=== PATIENT | female | born 1955 | race Caucasian/White ===

== ENCOUNTER 2018-12-02 05:07 | Inpatient (IN) ==
--- NOTE | 2018-10-28 14:34 | PAT Medication Instructions ---
Medication Instructions Date of Service October 28, 2018 Home Medications Beet Powder 1 dose PO QPM Dejesus Juice 1 dose PO QPM acetaminophen [Tylenol Arthritis Pain] 650 mg PO Q12H PRN aspirin 81 mg PO QPM atenolol 25 mg PO HS calcium carbonate [Calcium 500] 500 mg PO QPM cholecalciferol (vitamin D3) [Vitamin D3] 5,000 unit PO QPM cranberry 500 mg PO QPM diclofenac sodium 75 mg PO BID duloxetine [Cymbalta] 60 mg PO QAM hydroxychloroquine 200 mg PO BID magnesium 500 mg PO QPM melatonin 10 mg PO HS pantoprazole [Protonix] 40 mg PO QAM pravastatin [Pravachol] 40 mg PO QPM topiramate [Topamax] 25 mg PO HS ASK your surgeon for instructions diclofenac sodium 75 mg PO BID ASK your prescriber and surgeon hydroxychloroquine 200 mg PO BID STOP taking 2 weeks before surgery (or as soon as possible if surgery is within 2 weeks) Beet Powder 1 dose PO QPM Dejesus Juice 1 dose PO QPM cranberry 500 mg PO QPM Take morning of surgery With a small sip of water, OTHERWISE NOTHING TO EAT OR DRINK AFTER MIDNIGHT: acetaminophen [Tylenol Arthritis Pain] 650 mg PO Q12H PRN (okay to take up to 4 hours prior to surgery if needed) duloxetine [Cymbalta] 60 mg PO QAM pantoprazole [Protonix] 40 mg PO QAM Take evening before surgery acetaminophen [Tylenol Arthritis Pain] 650 mg PO Q12H PRN (if needed) aspirin 81 mg PO QPM atenolol 25 mg PO HS calcium carbonate [Calcium 500] 500 mg PO QPM cholecalciferol (vitamin D3) [Vitamin D3] 5,000 unit PO QPM magnesium 500 mg PO QPM melatonin 10 mg PO HS pravastatin [Pravachol] 40 mg PO QPM topiramate [Topamax] 25 mg PO HS Other Notes If you have any questions please call us at [phone] or [phone] or [phone] or [phone]
--- NOTE | 2018-10-28 15:19 | Anesthesiology Consultation ---
Date of Service October 28, 2018 History Surgery Operation Date: 12/02/18 07:00 Proposed Procedures p Right Total Knee Arthroplasty - Leland Garcia, Height/Weight Height: 5 ft 8 in Weight: 120.202 kg Allergies Allergy/AdvReac Type Severity Reaction Status Date / Time Penicillins Allergy Unknown HIVES Verified 10/27/18 08:26 sulfamethoxazole Allergy Rash Verified 10/27/18 08:26 [From Bactrim] trimethoprim [From Bactrim] Allergy Rash Verified 10/27/18 08:26 Medications Home Medications Medication Instructions Recorded Confirmed Last Taken Beet Powder 1 dose PO QPM 10/27/18 10/27/18 Unknown Dejesus Juice 1 dose PO QPM 10/27/18 10/27/18 Unknown acetaminophen [Tylenol Arthritis 650 mg PO Q12H PRN 10/27/18 10/27/18 Unknown Pain] aspirin 81 mg PO QPM 10/27/18 10/27/18 Unknown atenolol 25 mg PO HS 10/27/18 10/27/18 Unknown calcium carbonate [Calcium 500] 500 mg PO QPM 10/27/18 10/27/18 Unknown cholecalciferol (vitamin D3) 5,000 unit PO QPM 10/27/18 10/27/18 Unknown [Vitamin D3] cranberry 500 mg PO QPM 10/27/18 10/27/18 Unknown diclofenac sodium 75 mg PO BID 10/27/18 10/27/18 Unknown duloxetine [Cymbalta] 60 mg PO QAM 10/27/18 10/27/18 Unknown hydroxychloroquine 200 mg PO BID 10/27/18 10/27/18 Unknown magnesium 500 mg PO QPM 10/27/18 10/27/18 Unknown melatonin 10 mg PO HS 10/27/18 10/27/18 Unknown pantoprazole [Protonix] 40 mg PO QAM 10/27/18 10/27/18 Unknown pravastatin [Pravachol] 40 mg PO QPM 10/27/18 10/27/18 Unknown topiramate [Topamax] 25 mg PO HS 10/27/18 10/27/18 Unknown Past Medical History Medical History Atrial fibrillation ON ASA/BETA ERLINDA GERD (gastroesophageal reflux disease) HTN (hypertension) Lupus FOLLOWS WITH DRKayla STEVENS)/RHEUMATOLOGY Migraine Osteoarthritis Past Surgical History Surgical History History of arthroscopy of left knee x3 History of section x2 History of colonoscopy History of esophagogastroduodenoscopy (EGD) History of surgery LEFT SHOULDER JOINT SURGICAL MANIPULATION History of tonsillectomy History of tooth extraction History of total left knee replacement Hx of repair of left rotator cuff Status post surgical manipulation of knee joint LEFT Social History Smoking Status: Never smoker Do You Dip or Chew Tobacco: No Hx Alcohol Use: Yes Alcohol type: wine alcohol intake frequency: a few times a month Hx Substance Use: No substance use type: does not use
--- NOTE | 2018-11-01 11:37 | Anesthesiology Consultation ---
Date of Service November 01, 2018 Assessment & Plan (1) Encounter for pre-operative examination: - Cardio: 04/21/18: "Given the patient's clinical stability, I have not ordered new non-invasive tests at this time." 1 year followup recommended. - OK to continue ASA perioperatively per surgeon. Chart Review Chart Review: Acceptable Risk for Surgery and Patient seen in Pre Admission Testing Teaching & Discussion Pre-Anesthesia Teaching/Discussion Notes: Instructed NPO after midnight before surgery,except medications with 15 cc of water. Medication instructions provided according to the PAT guidelines. History Surgery Operation Date: 12/02/18 07:00 Proposed Procedures p Right Total Knee Arthroplasty - Leland Garcia, Height/Weight Height: 5 ft 8 in Weight: 122.8 kg Allergies Allergy/AdvReac Type Severity Reaction Status Date / Time Penicillins Allergy Unknown HIVES Verified 10/27/18 08:26 sulfamethoxazole Allergy Rash Verified 10/27/18 08:26 [From Bactrim] trimethoprim [From Bactrim] Allergy Rash Verified 10/27/18 08:26 Medications Home Medications Medication Instructions Recorded Confirmed Last Taken Beet Powder 1 dose PO QPM 10/27/18 10/27/18 Unknown Dejesus Juice 1 dose PO QPM 10/27/18 10/27/18 Unknown acetaminophen [Tylenol Arthritis 650 mg PO Q12H PRN 10/27/18 10/27/18 Unknown Pain] aspirin 81 mg PO QPM 10/27/18 10/27/18 Unknown atenolol 25 mg PO HS 10/27/18 10/27/18 Unknown calcium carbonate [Calcium 500] 500 mg PO QPM 10/27/18 10/27/18 Unknown cholecalciferol (vitamin D3) 5,000 unit PO QPM 10/27/18 10/27/18 Unknown [Vitamin D3] cranberry 500 mg PO QPM 10/27/18 10/27/18 Unknown diclofenac sodium 75 mg PO BID 10/27/18 10/27/18 Unknown duloxetine [Cymbalta] 60 mg PO QAM 10/27/18 10/27/18 Unknown hydroxychloroquine 200 mg PO BID 10/27/18 10/27/18 Unknown magnesium 500 mg PO QPM 10/27/18 10/27/18 Unknown melatonin 10 mg PO HS 10/27/18 10/27/18 Unknown pantoprazole [Protonix] 40 mg PO QAM 10/27/18 10/27/18 Unknown pravastatin [Pravachol] 40 mg PO QPM 10/27/18 10/27/18 Unknown topiramate [Topamax] 25 mg PO HS 10/27/18 10/27/18 Unknown Past Medical History Medical History Anemia BASELINE HGB LOW 12 RANGE PER CHART REVIEW Atrial fibrillation ON ASA/BETA ERLINDA GERD (gastroesophageal reflux disease) CONTROLLED HTN (hypertension) Lupus FOLLOWS WITH RHEUMATOLOGY; "STABLE" Migraine Osteoarthritis Exercise / Class Metabolic Activity III < 4 Walking/Shop/Light housework (USES CANE PRN) Past Family History Family History Brother Family hx of colon cancer Past Surgical History Surgical History History of arthroscopy of left knee x3 History of section x2 History of colonoscopy History of esophagogastroduodenoscopy (EGD) HX ESOPHAGEAL STRICTURES S/P DILATION History of surgery B/L SHOULDER MANIPULATION + INJECTION: 02/28/16: LMA #4 AT [facility] History of tonsillectomy History of tooth extraction History of total left knee replacement Hx of repair of left rotator cuff Status post surgical manipulation of knee joint LEFT Past Anesthesia History No Hx of Anesthesia Complications and No Family Hx of Anesthesia Complications History of PONV No Hx of PONV and Hx of Motion Sickness Social History Smoking Status: Never smoker Do You Dip or Chew Tobacco: No Hx Alcohol Use: Yes Alcohol type: wine alcohol intake frequency: a few times a month Hx Substance Use: No substance use type: does not use Review of Systems Patient denies chest pain, shortness of breath, cough, wheezing, palpitations. Physical Exam Vital Signs VITALS BP 137/82 P 68 TEMP 97.7 SP02 97%RA RESP 18 PHYSICAL Full neck and c-spine range of motion. Full TMJ range of motion. TMD 2.5 finger breaths Mallampati Score 2 Dentition: lower left side permanent bridge Lungs: clear throughout to auscultation Cardiac: regular rate and rhythm, no murmurs noted Spine: normal Carotid arteries: negative bruit Extremities: no edema Thick neck Testing Laboratory Results 11/01/18 11:51 11/01/18 11:51 11/01/18 11:51 PT 9.8 INR 1.0 APTT 25.3 11/01/18 T&S A+Ab- Electrocardiogram Date: 04/21/18 SR at 76bpm. Chest X-Ray Date: 11/01/18 Findings: + NAD Linear subsegmental bibasilar atelectasis/scarring. Echocardiogram Date: 04/08/18 EF 60-65%. No significant valvular disease. Stress Test Date: 11/13/14 Type: exercise (+ nuclear) Myocardial perfusion imaging done at rest and after treadmill stress is "normal." No evidence of myocardial infarction or ischemia. EF 63%. Wall motion is "normal." 83% MPHR. 7 METS. Other Testing CTA heart: 12/05/14: No significant LM/LCX disease. small/moderate non-obstruc tive LAD plaque. Very small non-obstructive RCA plaque.
--- NOTE | 2018-11-01 12:15 | XRay Report ---
XR chest Pre-admission PA/Lat HISTORY: 63 years-old Female pat preoperative exam. No acute chest complaints COMPARISON: None available TECHNIQUE: PA and lateral views of the chest FINDINGS: Cardiomediastinal silhouettes are within normal limits. Linear subsegmental bibasilar atelectasis/sca rring. No pneumothorax, pleural effusion, focal airspace consolidation or overt pulmonary edema. Dege nerative changes of the shoulders and spine. IMPRESSION: No acute process. The above report was generated using voice recognition software. It may contain grammatical, syntax o r spelling errors. Electronically signed by: Rodney Haywood M.D. 11/01/2018 12:14 PM
[2018-11-01 12:28] LABS: Basophils # (auto) 0.06 K/uL (0-0.2); Eosinophils # (auto) 0.16 K/uL (0-0.5); Eosinophils % (auto) 2.7 %; Hematocrit (blood only) 36.5 % (37-47); Hemoglobin 11.4 g/dL (12.0-16.0); Immature Granulocytes # (auto) 0.02 K/uL (0.00-0.02); Immature Granulocytes % (auto) 0.3 %; Lymphocytes # (auto) 1.52 K/uL (1.2-3.4); Lymphocytes % (auto) 25.4 %; Mean Corpuscular Hgb Conc 31.2 g/dL (32-36); Mean Corpuscular Volume 84.9 fL (80-100); Mean Platelet Volume 10.7 fL (7.4-10.4); Monocytes # (auto) 0.55 K/uL (0.11-0.59); Monocytes % (auto) 9.2 %; Neutrophils # (auto) 3.68 K/uL (1.4-6.5); Neutrophils % (auto) 61.4 %; Platelet Count 313 K/uL (130-400); RDW Coefficient of Variation 15.1 % (11.5-14.5); RDW Standard Deviation 46.7 fL (36.4-46.3); White Blood Count 5.99 K/uL (4.8-10.8)
[2018-11-01 12:36] LABS: BUN Creatinine Ratio 25.2 (10-20); Creatinine Clr Calc Pharmacy 145.7 ml/min; Est GFR (African American) 116.6; Est GFR (Non-African American) 100.6; Potassium 4.3 mmol/L (3.5-5.1)
[2018-11-01 12:43] LABS: Partial Thromboplastin Ratio 0.9; Partial Thromboplastin Time 25.3 Seconds (21.0-31.0); Prothrombin Time 9.8 Seconds (9.0-12.0)
--- NOTE | 2018-12-01 06:39 | History & Physical Report ---
Date of Service December 01, 2018 Assessment & Plan (1) Osteoarthritis of right knee: We will proceed with a right total knee arthroplasty. Postoperatively she will be started on aspirin for DVT prophylaxis and kept overnight in the hospital for postoperative medical management. She plans to use outpatient physical therapy in [place] upon discharge. Present on Admission?: Yes History of Present Illness Chief Complaint: Primary osteoarthritis of the right knee Primary Care Provider: Rebeccajosirylanadriel Mustapha Sanchez is a pleasant 63-year-old female who is been dealing with chronic increasing right knee pain. X-rays and clinical examination have been diagnostic for primary osteoarthritis of the right knee. After failing conservative treatment, she has elected to proceed with a right total knee arthroplasty. She does have a history of a left knee replacement done 12 years ago at another institution. Allergies Allergy/AdvReac Type Severity Reaction Status Date / Time Penicillins Allergy Unknown HIVES Verified 10/27/18 08:26 sulfamethoxazole Allergy Rash Verified 10/27/18 08:26 [From Bactrim] trimethoprim [From Bactrim] Allergy Rash Verified 10/27/18 08:26 Home Medications Home Medications Medication Instructions Recorded Confirmed Type Beet Powder 1 dose PO QPM 10/27/18 10/27/18 History Dejesus Juice 1 dose PO QPM 10/27/18 10/27/18 History acetaminophen [Tylenol Arthritis 650 mg PO Q12H PRN 10/27/18 10/27/18 History Pain] aspirin 81 mg PO QPM 10/27/18 10/27/18 History atenolol 25 mg PO HS 10/27/18 10/27/18 History calcium carbonate [Calcium 500] 500 mg PO QPM 10/27/18 10/27/18 History cholecalciferol (vitamin D3) 5,000 unit PO QPM 10/27/18 10/27/18 History [Vitamin D3] cranberry 500 mg PO QPM 10/27/18 10/27/18 History diclofenac sodium 75 mg PO BID 10/27/18 10/27/18 History duloxetine [Cymbalta] 60 mg PO QAM 10/27/18 10/27/18 History hydroxychloroquine 200 mg PO BID 10/27/18 10/27/18 History magnesium 500 mg PO QPM 10/27/18 10/27/18 History melatonin 10 mg PO HS 10/27/18 10/27/18 History pantoprazole [Protonix] 40 mg PO QAM 10/27/18 10/27/18 History pravastatin [Pravachol] 40 mg PO QPM 10/27/18 10/27/18 History topiramate [Topamax] 25 mg PO HS 10/27/18 10/27/18 History Past Med/Surg History Medical History Anemia BASELINE HGB LOW 12 RANGE PER CHART REVIEW Atrial fibrillation ON ASA/BETA ERLINDA GERD (gastroesophageal reflux disease) CONTROLLED HTN (hypertension) Lupus FOLLOWS WITH RHEUMATOLOGY; "STABLE" Migraine Osteoarthritis Surgical History History of arthroscopy of left knee x3 History of section x2 History of colonoscopy History of esophagogastroduodenoscopy (EGD) HX ESOPHAGEAL STRICTURES S/P DILATION History of surgery B/L SHOULDER MANIPULATION + INJECTION: 02/28/16: LMA #4 AT [facility] History of tonsillectomy History of tooth extraction History of total left knee replacement Hx of repair of left rotator cuff Status post surgical manipulation of knee joint LEFT Family History Brother Family hx of colon cancer Social History Preferred Language: Moldovan Communication Ability: Effective Aerographer Required: No Beliefs That Will Affect Care: None Current Living Situation: Spouse Other Information That Helps Us Care for You: No Feels Safe at Home: Yes Safety Concerns: Feels Safe At This Time Smoking Status: Never smoker Do You Dip or Chew Tobacco: No Second Hand Exposure: No Hx Alcohol Use: Yes Alcohol type: wine Hx Substance Use: No Review of Systems All systems reviewed & are unremarkable except as noted in HPI & below Physical Exam Constitutional: WD/WN, vitals as above Eyes: PERRL, conjunctivae normal, anicteric sclerae ENMT: external ear and nose normal, oropharynx normal Neck: trachea midline, no thyromegaly Respiratory: normal respiratory effort Cardiovascular: RRR, no murmur, no edema Gastrointestinal (Abdomen): normal bowel sounds, soft, nontender, no hepatosplenomegaly Musculoskeletal: On physical examination of the right knee there is a trace effusion. There is near full range of motion and no evidence of instability. There is significant tenderness palpation along the medial and lateral joint lines and over the distal femoral condyles. Psychiatric: A+Ox3, euthymic affect Results & Data Diagnostic Findings Radiographs of the right knee demonstrate advanced osteoarthritis with joint space narrowing osteophyte formation and [id number] articulation.
[2018-12-02] MEDS ORDERED: ROPIVACAINE 0.5% 5 MG/ML 30 ML VIAL ONE (05:58)
[2018-12-02] MEDS ORDERED: BUPIVACAINE 0.5 % 5 MG/1 ML PF 10ML VIAL ONE (05:58)
[2018-12-02] MEDS ORDERED: GABAPENTIN 600 MG DOSE PO SCH (06:00)
[2018-12-02] MEDS ORDERED: ACETAMINOPHEN 500 MG TAB PO SCH (06:00)
[2018-12-02] MEDS ORDERED: LR 500ML BOLUS IV SCH (06:00)
[2018-12-02] MEDS ORDERED: TRANEXAMIC ACID 1,000 MG **IV Pre-op IV SCH (06:00)
[2018-12-02] MEDS ORDERED: ROPIVACAINE 0.5% HCL/PF 150 MG, BUPIVACAINE 0.5% MPF 30 ML, EPINEPHrine 30MG/30ML (OR U... INSTIL SCH (06:00)
[2018-12-02] MEDS ORDERED: FAMOTIDINE 20 MG TAB PO SCH (06:00)
[2018-12-02] MEDS ORDERED: LR 500ML BOLUS, THEN 15ML/HR IV SCH (06:00)
[2018-12-02] MEDS ORDERED: LR 60ML/HR IV SCH (06:00)
[2018-12-02] MEDS ORDERED: TRANEXAMIC ACID 1,000 MG **IV Intra-op IV SCH (06:30)
[2018-12-02] MEDS ORDERED: ORTHO JOINT ANESTHETIC ONE (06:32)
[2018-12-02] MEDS ORDERED: CEFAZOLIN 2,000 MG/15 ML IV PUSH IV ONE (06:37)
[2018-12-02] MEDS ORDERED: MIDAZOLAM HCL 1 MG/ML 2ML VIAL ONE ×3 (06:42→08:14)
[2018-12-02] MEDS ORDERED: fentaNYL citrate 100 MCG/2 ML VIAL ONE (06:42)
--- NOTE | 2018-12-02 06:52 | History & Physical Bridge Note ---
Date of Service December 02, 2018 History & Physical Bridge Note I have examined the patient, reviewed the History & Physical and in the interval since the performance of the History & Physical I have noted the following changes of clinical significance: no changes noted
[2018-12-02] MEDS ORDERED: KETOROLAC 30 MG/ML VIAL IV PRN (07:24)
[2018-12-02] MEDS ORDERED: ONDANSETRON INJ 2 MG/ML 2 ML VIAL IV PRN ×2 (07:24→09:51)
[2018-12-02] MEDS ORDERED: ATROPINE SULFATE 0.1 MG/ML 10ML SYR IV PRN (07:24)
[2018-12-02] MEDS ORDERED: ePHEDrine sulfate 50 MG/ML AMP IV PRN (07:24)
[2018-12-02] MEDS ORDERED: HYDROmorphone INJ 1 MG/ML SYRINGE IV PRN (07:24)
[2018-12-02] MEDS ORDERED: DEXAMETHASONE SOD INJ 4 MG/ML VIAL ONE (08:33)
[2018-12-02] MEDS ORDERED: ONDANSETRON INJ 2 MG/ML 2 ML VIAL ONE (08:33)
[2018-12-02] MEDS ORDERED: LIDOCAINE HCL 2% 2 ML VIAL/AMP(20MG/ML) INFIL ONE (08:33)
[2018-12-02] MEDS ORDERED: PROPOFOL IV EMULSION 10 MG/ML 20 ML VIAL IV ONE (08:33)
--- NOTE | 2018-12-02 08:38 | Operative Report ---
Post Operative Report Pre & Post Diagnosis Operation Date: 12/02/18 07:00 Pre-Op Diagnosis: Right Knee Degenerative Joint Disease Post-Op Diagnosis: Right Knee Degenerative Joint Disease Procedure Operation Date: 12/02/18 07:00 Actual Procedures p Right Total Knee Arthroplasty(Right) - Leland Garcia DO Surgeon Leland Garcia DO Tool Grinding Technician Leland Levy PAC Estimated Blood Loss 20 Findings Consistent with Post-Op Diagnosis Specimens Right femoral and tibial bone Complications none Disposition Disposition: Recovery Room Indications aLura is a pleasant 63-year-old female who presented my office with complaints of chronic increasing right knee pain. X-rays and clinical examination were diagnostic for primary osteoarthritis of the right knee. After failing conservative treatment, she elected proceed with a right total knee arthroplasty. Description of Procedure Implants used: I used a Biomet Vanguard total knee arthroplasty system with a size 72.5 femur, 71 tibia, 31 patella, and a size 10 PS polyethylene bearing. All components were cemented in place with Palacos G cement. The patient arrived [facility] for the above procedure. There were seen in the preoperative holding area and the operative extremity was identified and signed. There were given a preoperative antibiotic, a spinal anesthetic and an adductor nerve block. There were taken back to the operating room and laid on the table in supine position. There were given basic sedation. The operative knee was then prepped and draped in sterile fashion. A timeout was done, and the patient and the operative extremity was properly identified. A midline incision was made directly over the patella. Dissection was taken down to the extensor mechanism. A subvastus arthrotomy was used. The medial retinaculum was released and the fat pad was mostly left intact. The knee was flexed and the ACL, PCL, and meniscus were removed. A drill was sent down the center of the femoral canal followed by an intramedullary kevin. Off that kevin a distal femoral cutting block was placed. 9 mm was resected off the distal femur at 5 of valgus. A posterior referencing AP sizing guide was then placed on the distal femur. The femur measured to be a size 72.5. 2 drill holes were placed in 3 of external rotation. A 4-in-1 cutting block was then impacted into place. Anterior posterior and chamfer cuts were then made. The posterior stabilizing box guide was then impacted into place and the box was resected for the posterior stabilizing component. The proximal tibia was then exposed. A drill was sent down the center of the tibial canal followed by an intramedullary kevin. Off that kevin a proximal tibial resection guide was placed. The proximal tibia was then resected. The tibia measured to be a size 71. The tibial plate was then placed in the appropriate rotation and the tibia was punched. The posterior aspect of the knee was then opened up and any additional meniscus fragments and osteophytes were removed. Trial components were then placed. I used a size 10 PS polyethylene insert. The knee was brought through a full range of motion and felt to be stable. The patella was then everted and 8 mm was resected off the posterior aspect of the patella. The patella measured to be a size 31. 3 peg holes were then drilled. A trial patella was placed. The knee was once again brought through a full r heather of motion and felt to be stable. Trial components were then removed. The surrounding soft tissues were injected with 100 cc of an orthopedic pain control cocktail. All components were then cemented into place with Palacos G cement. The final polyethylene insert was then snapped into place and the anterior bar was locked. Once cement was dry the tourniquet was deflated. Hemostasis was obtained. A dilute betadyne lavage was then done for 3 minutes. The joint was then irrigated with normal saline solution. The subvastus arthrotomy was then closed with #1 Vicryl suture. The skin was closed with 2-0 Vicryl, 3-0V lock suture, and angel luis. A soft compressive dressing was placed. The patient was then transferred to a hospital bed and taken to the postanesthesia care unit in stable condition. They tolerated the procedure well. I attest to the content of the Intraoperative Record and any orders documented therein. Any exceptions are noted below.
--- NOTE | 2018-12-02 09:34 | XRay Report ---
XR knee RT 2V routine HISTORY: 63 years-old Female Surgical Post Op right knee total joint arthroplasty COMPARISON: Right knee radiographs 09/13/2018 TECHNIQUE: 2 views of the right knee FINDINGS: Right knee total joint arthroplasty and patella resurfacing. Anterior midline skin angel luis are noted along with expected postsurgical soft tissue swelling and deep tissue air. Satisfactory alignment wit hout acute fracture or retained foreign body. Surgical drainage catheter also noted. IMPRESSION: Right knee total joint arthroplasty with expected postoperative findings. The above report was generated using voice recognition software. It may contain grammatical, syntax o r spelling errors. Electronically signed by: Rodney Haywood M.D. 12/02/2018 9:33 AM
--- NOTE | 2018-12-02 09:49 | Anesthesiology Progress Note ---
Date of Service December 02, 2018 Anesthesia Post Procedure Vital Signs Vital Signs: Temp Pulse Pulse Resp BP Pulse Ox 12/02/18 09:25 58 L 16 114/55 L 94 12/02/18 09:15 65 16 122/59 L 97 12/02/18 09:08 36.1 C L 63 16 128/55 L 96 12/02/18 05:42 36.9 C 74 20 174/92 H 96 Pain Intensity Right Knee: Pain Intensity: 5 Transfer of Care Handoff Completed per policy Notes Mental Status: alert / awake / arousable Patient Amnestic to Procedure: Yes Nausea / Vomiting: adequately controlled Pain: adequately controlled Airway Patency, RR, SpO2: stable & adequate BP & HR: stable & adequate Hydration State: stable & adequate Anesthetic Complications: no major complications apparent
[2018-12-02] MEDS ORDERED: HYDROmorphone INJ 0.5 MG/0.5 ML SYR IV PRN (09:51)
[2018-12-02] MEDS ORDERED: BISACODYL 10 MG SUPP PR PRN (09:51)
[2018-12-02] MEDS ORDERED: NALOXONE HCL 0.4 MG/1 ML VIAL/CARP IV PRN (09:51)
[2018-12-02] MEDS ORDERED: MAGNESIUM HYDROXIDE SUSP 30 ML UDC PO PRN (09:51)
[2018-12-02] MEDS ORDERED: METOCLOPRAMIDE HCL INJ 5 MG/ML 2 ML VIAL IV PRN (09:51)
[2018-12-02] MEDS: SODIUM CHLORIDE 0.9% 1000ML 1,000 ML IV SCH (10:14)
[2018-12-02] MEDS: KETOROLAC 30 MG/ML VIAL IV SCH ×3 (11:42→23:39)
[2018-12-02] MEDS: ACETAMINOPHEN 500 MG TAB PO SCH ×2 (13:41→22:01)
[2018-12-02] MEDS: CEFAZOLIN 2000MG 2,000 MG/15 ML SYR IV SCH ×2 (15:13→22:01)
[2018-12-02] MEDS: OXYCODONE HCL IR 5 MG TAB (IMMEDIATE RELEASE) PO PRN ×2 (16:53→21:57)
[2018-12-02] MEDS: ATENOLOL 25 MG TABLET PO SCH (21:58)
[2018-12-02] MEDS: TOPIRAMATE 25 MG TAB PO SCH (21:58)
[2018-12-02] MEDS: PRAVASTATIN SOD 40 MG TAB PO SCH (21:58)
[2018-12-02] MEDS: DOCUSATE SODIUM 100 MG CAP PO SCH (21:58)
[2018-12-02] MEDS: SENNA 8.6 MG TAB PO SCH (21:59)
[2018-12-02] MEDS: ASPIRIN 81 MG ECTAB PO SCH (21:59)
[2018-12-02] MEDS: HYDROXYCHLOROQUINE SULFATE 200 MG TAB PO SCH (22:00)
[2018-12-02] MEDS: MAGNESIUM OXIDE 400 MG TAB PO SCH (22:00)
[2018-12-03] MEDS: OXYCODONE HCL IR 5 MG TAB (IMMEDIATE RELEASE) PO PRN ×4 (04:01→20:02)
[2018-12-03] MEDS: ACETAMINOPHEN 500 MG TAB PO SCH ×3 (05:55→21:35)
[2018-12-03] MEDS: KETOROLAC 30 MG/ML VIAL IV SCH ×4 (05:57→23:35)
[2018-12-03] MEDS: SODIUM CHLORIDE 0.9% 1000ML 1,000 ML IV SCH (06:43)
[2018-12-03 07:07] LABS: Hematocrit (blood only) 30.3 % (37-47); Hemoglobin 9.5 g/dL (12.0-16.0); Mean Corpuscular Hgb Conc 31.4 g/dL (32-36); Mean Corpuscular Volume 84.6 fL (80-100); Mean Platelet Volume 10.5 fL (7.4-10.4); Platelet Count 256 K/uL (130-400); RDW Coefficient of Variation 14.9 % (11.5-14.5); RDW Standard Deviation 46.3 fL (36.4-46.3); Red Blood Count 3.58 M/uL (4.2-5.4); White Blood Count 8.47 K/uL (4.8-10.8)
[2018-12-03 07:40] LABS: BUN Creatinine Ratio 23.5 (10-20); Calcium 8.7 mg/dl (8.5-10.1); Creatinine Clr Calc Pharmacy 130.4 ml/min; Est GFR (African American) 112.8; Est GFR (Non-African American) 97.3; Potassium 3.8 mmol/L (3.5-5.1)
[2018-12-03] MEDS: MULTIVITAMIN TAB PO SCH (08:30)
[2018-12-03] MEDS: DOCUSATE SODIUM 100 MG CAP PO SCH ×2 (08:30→20:07)
[2018-12-03] MEDS: HYDROXYCHLOROQUINE SULFATE 200 MG TAB PO SCH ×4 (08:30→17:20)
[2018-12-03] MEDS: PANTOprazole 40 MG TAB PO SCH (08:30)
[2018-12-03] MEDS: DULOXETINE HCL 60 MG CAP PO SCH (08:30)
[2018-12-03] MEDS: ASPIRIN 81 MG ECTAB PO SCH ×2 (08:30→20:07)
[2018-12-03] MEDS ORDERED: Nursing to Pharmacy Communication ONE (08:35)
--- NOTE | 2018-12-03 10:37 | Orthopedic Progress Note ---
Date of Service December 03, 2018 Assessment & Plan (1) Osteoarthritis of right knee: Overall she is doing very well. She is not having too much pain in the knee. She is been ambulating well with physical therapy. She is on aspirin for DVT prophylaxis. We will keep her in the hospital today for medical management and to make sure her pain is well controlled. She will get some physical therapy tomorrow. We plan to discharge her to home tomorrow with outpatient physical therapy in [place]. Present on Admission?: Yes Subjective was seen and examined at bedside this morning. Overall she is doing fair ly well. She is not having too much pain in the knee. She is been up and ambulating well with physical therapy. She is on aspirin for DVT prophylaxis. She has no complaints. Physical Exam Musculoskeletal: On physical examination of the right knee, the dressing is clean and dry. Her legs out in full extension. She is active dorsiflexion and plantarflexion of her right ankle. Results & Data Vital Signs (Past 12 Hours) Vital Signs Temp Pulse Pulse Resp BP Pulse Ox 12/03/18 06:50 36.0 C L 60 18 148/76 H 98 12/03/18 03:21 36.6 C 65 18 147/67 H 96 12/02/18 23:15 36.7 C 57 L 17 147/67 H 92 Laboratory Results H & H 11/01/18 12/03/18 Range/Units 11:51 06:54 Hgb 11.4 L 9.5 L (12.0-16.0) g/dL Hct 36.5 L 30.3 L (37-47) % Coagulation 11/01/18 Range/Units 11:51 INR 1.0 (0.9-1.1) Diagnostic Findings Postoperative x-rays of the right knee show the prosthesis to be in anatomic alignment without any evidence of fracture, dislocation, or loosening.
[2018-12-03] MEDS: MAGNESIUM OXIDE 400 MG TAB PO SCH (20:07)
[2018-12-03] MEDS: TOPIRAMATE 25 MG TAB PO SCH (20:07)
[2018-12-03] MEDS: SENNA 8.6 MG TAB PO SCH (20:07)
[2018-12-03] MEDS: PRAVASTATIN SOD 40 MG TAB PO SCH (20:07)
[2018-12-03] MEDS: ATENOLOL 25 MG TABLET PO SCH (20:11)
[2018-12-03 23:31] VITALS: PULSE 73; TEMP 98.2
[2018-12-04] MEDS: OXYCODONE HCL IR 5 MG TAB (IMMEDIATE RELEASE) PO PRN ×3 (01:36→11:55)
[2018-12-04] MEDS: KETOROLAC 30 MG/ML VIAL IV SCH (06:04)
[2018-12-04] MEDS: ACETAMINOPHEN 500 MG TAB PO SCH (06:04)
[2018-12-04] MEDS: PANTOprazole 40 MG TAB PO SCH (07:04)
[2018-12-04 07:19] VITALS: BP 131/68; O2SAT 95
--- NOTE | 2018-12-04 07:43 | Orthopedic Progress Note ---
Date of Service December 04, 2018 Assessment & Plan (1) Osteoarthritis of right knee: Overall she is doing very well. She is not having too much pain in the right knee. She is on aspirin for DVT prophylaxis. She will be seen by physical therapy again later this morning. We plan to discharge her to home after physical therapy. She will follow-up with orthopedics in 2 weeks. Present on Admission?: Yes Subjective was seen and examined at bedside this morning. Overall she is doing fairly well. She is having some soreness in the right knee but is not too bad. She is been ambulate well with physical therapy. She has no complaints. Physical Exam Musculoskeletal: On physical examination of the right knee, the dressing has been changed. The incision is clean and dry. She is neurovascularly intact. Results & Data Vital Signs (Past 12 Hours) Vital Signs Temp Pulse Resp BP Pulse Ox 12/04/18 07:19 36.8 C 73 18 131/68 95 12/03/18 23:28 36.8 C 73 18 130/70 94 12/03/18 20:05 36.7 C 77 18 137/76 95
--- NOTE | 2018-12-04 07:44 | Discharge Summary ---
Date of Service December 04, 2018 Admission HPI Per Admitting Provider is a pleasant 63-year-old female who is been dealing with chronic increasing right knee pain. X-rays and clinical examination have been diagnostic for primary osteoarthritis of the right knee. After failing conse rvative treatment, she has elected to proceed with a right total knee arthroplasty. She does have a history of a left knee replacement done 12 years ago at another institution. Specialty Data Orthopedic H & H 11/01/18 12/03/18 Range/Units 11:51 06:54 Hgb 11.4 L 9.5 L (12.0-16.0) g/dL Hct 36.5 L 30.3 L (37-47) % Coagulation 11/01/18 Range/Units 11:51 INR 1.0 (0.9-1.1) Discharge Data Consultations 12/02/18 09:51 Consult Case Management - Discharge Planning Routine Procedures Performed Operation Date: 12/02/18 07:00 Actual Procedures p Right Total Knee Arthroplasty(Right) - Leland Garcia DO Hospital Course (1) Osteoarthritis of right knee: On December 02, 2018 arrived at [facility] and underwent a right total knee arthroplasty without complication. She had a spinal anesthetic and a right adductor nerve block. Postoperatively she was started on aspirin for DVT prophylaxis and discharged to general orthopedic floors. Her hospital course was uneventful. On postop day #1 her H&H was stable and her pain was well controlled. She was able to ambulate well with physical therapy. On postop day #2 her dressing was changed. She ambulated well once again with physical therapy. She was then discharged home. She will follow-up with orthopedics in 2 weeks. Discharge Instructions Home Medications Medication Instructions Recorded Confirmed Beet Powder 1 dose PO QPM 10/27/18 12/02/18 Dejesus Juice 1 dose PO QPM 10/27/18 12/02/18 acetaminophen [Tylenol Arthritis 650 mg PO Q12H PRN 10/27/18 12/02/18 Pain] aspirin 81 mg PO QPM 10/27/18 12/02/18 atenolol 25 mg PO HS 10/27/18 10/27/18 calcium carbonate [Calcium 500] 500 mg PO QPM 10/27/18 10/27/18 cholecalciferol (vitamin D3) 5,000 unit PO QPM 10/27/18 10/27/18 [Vitamin D3] cranberry 500 mg PO QPM 10/27/18 12/02/18 diclofenac sodium 75 mg PO BID 10/27/18 12/02/18 duloxetine [Cymbalta] 60 mg PO QAM 10/27/18 12/02/18 hydroxychloroquine 200 mg PO BID 10/27/18 12/02/18 magnesium 500 mg PO QPM 10/27/18 10/27/18 melatonin 10 mg PO HS 10/27/18 12/02/18 pantoprazole [Protonix] 40 mg PO QAM 10/27/18 12/02/18 pravastatin [Pravachol] 40 mg PO QPM 10/27/18 10/27/18 topiramate [Topamax] 25 mg PO HS 10/27/18 10/27/18 Previous Rx's Medication Instructions Recorded aspirin [Ecotrin Low Strength] 81 mg PO BID #84 tab 12/03/18 oxycodone 5 mg PO Q4H PRN #40 tab 12/03/18
[2018-12-04] MEDS: ASPIRIN 81 MG ECTAB PO SCH (08:11)
[2018-12-04] MEDS: MULTIVITAMIN TAB PO SCH (08:11)
[2018-12-04] MEDS: DOCUSATE SODIUM 100 MG CAP PO SCH (08:11)
[2018-12-04] MEDS: DULOXETINE HCL 60 MG CAP PO SCH (08:11)
[2018-12-04] MEDS: HYDROXYCHLOROQUINE SULFATE 200 MG TAB PO SCH (11:55)
== END 2018-12-04 12:22 | disposition home or self-care (01) | DRG 470 ==
LOC: ASU 05:07 → 3E 09:09